=== PATIENT | male | born 1945 ===

== ENCOUNTER 2018-07-10 09:23 | Day surgery (SDC) | payer MEDICARE ==
[2018-07-10] MEDS ORDERED: Propofol 10 mg/ml Inj (20 ML) ONE (10:48)
[2018-07-10] MEDS ORDERED: HYDROmorphone 0.5 mg/0.5 ml ISec IVP PRN (10:48)
[2018-07-10] MEDS ORDERED: Midazolam 2 MG/2 ML VIAL ONE ×2 (10:48→11:07)
[2018-07-10] MEDS ORDERED: Ciprofloxacin 400mg/200ml D5W 400 MG/200 ML BAG IVPB ONE (10:50)
[2018-07-10] MEDS ORDERED: Lidocaine 2% Jelly (Uro-Jet) ONE (10:51)
[2018-07-10] MEDS ORDERED: ceFAZolin IV 1 gm in Dextrose 1 GM/50 ML BAG IVPB ONE (11:03)
--- NOTE | 2018-07-10 12:10 | PCM.SURG1 ---
Surgeon's Initial Post Op Note - Surgeon's Notes Surgeon: eli [employer] Servicer: none Type of Anesthesia: General IV Anesthesia Administered By: Pre-Operative Diagnosis: bph elevated psa Operative Findings: bph prostatitis Post-Operative Diagnosis: bph prostatitis Operation Performed: cystoscopy prostate ultrasound biopsies Specimen/Specimens Removed: prostate tissue Estimated Blood Loss: EBL {In ML}: 10 Blood Products Given: N/A Drains Used: No Drains Post-Op Condition: Good Date of Surgery/Procedure: 07/10/18 Time of Surgery/Procedure: 12:13
--- NOTE | 2018-07-10 12:16 | PCM.SURG1 ---
Surgeon's Initial Post Op Note - Surgeon's Notes Surgeon: [email or web address]. [email or web address] [employer] Technician: none Type of Anesthesia: General IV Anesthesia Administered By: Pre-Operative Diagnosis: bph elevated psa Operative Findings: bph prostatitis Post-Operative Diagnosis: bph prostatitis Operation Performed: cystoscopy prostate ultrasound biopsies Specimen/Specimens Removed: prostate tissue Estimated Blood Loss: EBL {In ML}: 10 Blood Products Given: N/A Drains Used: No Drains Post-Op Condition: Good Date of Surgery/Procedure: 07/10/18 Time of Surgery/Procedure:
[2018-07-10 13:26] VITALS: BP 147/80; PULSE 90; RESP 18; TEMP 97; O2SAT 100
--- NOTE | 2018-07-12 01:45 | OP ---
PROCEDURE DATE: 07/10/2018 PREOPERATIVE DIAGNOSES: Benign prostatic hyperplasia and elevated prostate-specific antigen. POSTOPERATIVE DIAGNOSES: Benign prostatic hyperplasia and prostatitis. PROCEDURE: Cystoscopy, transrectal, prostate ultrasound biopsies. SURGEON: Mario Marsh MD. GROSS FINDINGS: Good bladder capacity. No tumors or stone were observed during emptying or filling of the bladder. Moderate trabeculated bladder with localize cellulose formation, urethral orifice is normally placed and in configuration and large prostate gland with inflammation of the prostate, membranous and pendulous urethra normal. This is likely elongated prostatic urethra. TECHNIQUE: The patient was placed in lithotomy position. The external genitalia was prepped and draped in the usual sterile fashion. A #22 panendoscope was introduced in the bladder under direct vision, findings as above. Cystoscopy was terminated. Then, using ultrasound rectal probe, which was placed in the patient's rectum, the prostate gland was scanned transversally and sagittally. Using a biopsy needle, six passes were made at the right lateral lobe and six passes were made at the left lateral lobe. Some bleeding was encountered with clots. Then, the prostate biopsy, digital pressure was placed to the prostatic capsule for controlling of bleeding. The rectum was irrigated thoroughly with normal saline. Because of the bleeding, it was decided to leave a #25 mL [place] indwelling in the bladder for 24 hours. The patient tolerated the procedure well and returned to the recovery room in satisfactory condition. Mario Marsh MD
== END 2018-07-10 13:57 | disposition home or self-care (01) ==
LOC: C.SDS 09:23
PROVIDERS: ATTEND Urology
DX: N40.1 Benign prostatic hyperplasia with lower urinary tract symptoms (principal); N41.9 Inflammatory disease of prostate, unspecified; N42.1 Congestion and hemorrhage of prostate; R97.20 Elevated prostate specific antigen [PSA]
CPT/HCPCS: 52000; 53899; 55700; 88305; 88342; J0690; J0744